=== PATIENT | male | born 1935 | race Caucasian/White ===

== ENCOUNTER 2023-07-14 17:15 | Emergency (ER) | payer MEDICARE, OTHER ==
[~2023-07-14] VITALS: Ht 170.2 cm; Wt 104.5 kg
[2023-07-14 17:40] LABS: BASOPHILS # (AUTO) 0.1 X10'3 (0-0.2); BASOPHILS % (AUTO) 1.1 % (0-1); EOSINOPHILS # (AUTO) 0.2 X10'3 (0-0.9); EOSINOPHILS % (AUTO) 2.8 % (0-6); HEMATOCRIT 40.4 % (42.0-52.0); HEMOGLOBIN 13.7 g/dl (14.0-17.9); LYMPHOCYTES # (AUTO) 1.6 X10'3 (1.1-4.8); LYMPHOCYTES % (AUTO) 21.6 % (21-51); MEAN CORPUSCULAR HEMOGLOBIN 31.7 PG (27.0-31.0); MEAN CORPUSCULAR VOLUME 93.3 FL (78-98); MEAN PLATELET VOLUME 8.1 FL (7.4-10.4); MONOCYTES # (AUTO) 0.7 X10'3 (0-0.9); MONOCYTES % (AUTO) 9.2 % (2-12); NEUTROPHILS # (AUTO) 4.9 X10'3 (1.8-7.7); NEUTROPHILS % (AUTO) 65.3 % (42-75); PLATELET COUNT 218 X10'3 (140-440); RED BLOOD COUNT 4.33 X10'6 (4.70-6.10); RED CELL DISTRIBUTION WIDTH 14.7 % (11.5-14.5); WHITE BLOOD COUNT 7.5 X10'3 (4.5-11.0)
[2023-07-14 17:55] LABS: ALANINE AMINOTRANSFERASE 21 U/L (12-78); ALBUMIN 4.1 G/DL (3.4-5.0); ALKALINE PHOSPHATASE 49 IU/L (46-116); ANION GAP 8 (8-16); ASPARTATE AMINO TRANSFERASE 20 U/L (10-37); BILIRUBIN,TOTAL 0.4 MG/DL (0.1-1.0); BLOOD UREA NITROGEN 20 MG/DL (7-18); BUN/CREATININE RATIO 18.7 (10.0-20.0); CALCIUM 9.9 MG/DL (8.5-10.1); CHLORIDE 98 MMOL/L (99-107); CREATININE 1.07 MG/DL (0.60-1.10); GLUCOSE 152 MG/DL (70-104); POTASSIUM 4.7 MMOL/L (3.5-5.1); SODIUM 132 MMOL/L (135-145); TOTAL CARBON DIOXIDE 25.8 MMOL/L (24-32); TOTAL PROTEIN 8.4 G/DL (6.4-8.2); eCRCL 45 ML/MIN; eGFR 65 ML/MIN
[2023-07-14 18:01] LABS: PRO BRAIN NATRIURETIC PEPTIDE 275 PG/ML (0-450)
[2023-07-14] MEDS ORDERED: oxyCODONE/APAP 10/325mg tablet PO ONE (21:10)
[2023-07-14] MEDS ORDERED: OXYC-145 PO (21:10)
[2023-07-14 21:42] VITALS: BP 170/72; PULSE 57; RESP 16; TEMP 98.4; O2SAT 97
== END 2023-07-14 21:46 | disposition home or self-care (01) ==
LOC: ER 17:16
DX: R07.9 Chest pain, unspecified (principal); R10.10 Upper abdominal pain, unspecified; E11.9 Type 2 diabetes mellitus without complications; Z79.899 Other long term (current) drug therapy
CPT/HCPCS: 36415; 71045; 80053; 83880; 84484; 85025; 93005; 99285

== ENCOUNTER 2023-07-19 12:55 | Emergency (ER) | payer MEDICARE, OTHER ==
[~2023-07-19] VITALS: Ht 170.2 cm; Wt 100.0 kg
[~2023-07-19 12:55] MED LIST: OXYC-145 PO
[2023-07-19 13:43] LABS: BASOPHILS % (AUTO) 0.6 % (0-1); EOSINOPHILS # (AUTO) 0.1 X10'3 (0-0.9); EOSINOPHILS % (AUTO) 2.3 % (0-6); HEMATOCRIT 38.9 % (42.0-52.0); HEMOGLOBIN 13.2 g/dl (14.0-17.9); LYMPHOCYTES % (AUTO) 16.7 % (21-51); MEAN CORPUSCULAR HEMOGLOBIN 31.5 PG (27.0-31.0); MEAN CORPUSCULAR HGB CONC 33.9 g/dL (33.0-36.5); MEAN CORPUSCULAR VOLUME 92.9 FL (78-98); MEAN PLATELET VOLUME 8.1 FL (7.4-10.4); MONOCYTES # (AUTO) 0.5 X10'3 (0-0.9); MONOCYTES % (AUTO) 7.9 % (2-12); NEUTROPHILS # (AUTO) 4.4 X10'3 (1.8-7.7); NEUTROPHILS % (AUTO) 72.5 % (42-75); PLATELET COUNT 209 X10'3 (140-440); RED BLOOD COUNT 4.18 X10'6 (4.70-6.10)
[2023-07-19 13:53] LABS: ALANINE AMINOTRANSFERASE 15 U/L (12-78); ALBUMIN 3.7 G/DL (3.4-5.0); ALKALINE PHOSPHATASE 40 IU/L (46-116); ANION GAP 7 (8-16); ASPARTATE AMINO TRANSFERASE 23 U/L (10-37); BILIRUBIN,TOTAL 0.6 MG/DL (0.1-1.0); BLOOD UREA NITROGEN 19 MG/DL (7-18); BUN/CREATININE RATIO 18.3 (10.0-20.0); CALCIUM 9.5 MG/DL (8.5-10.1); CHLORIDE 97 MMOL/L (99-107); CREATININE 1.04 MG/DL (0.60-1.10); GLUCOSE 151 MG/DL (70-104); POTASSIUM 4.5 MMOL/L (3.5-5.1); SODIUM 132 MMOL/L (135-145); TOTAL CARBON DIOXIDE 27.9 MMOL/L (24-32); TOTAL PROTEIN 7.4 G/DL (6.4-8.2); eCRCL 46 ML/MIN; eGFR 67 ML/MIN
[2023-07-19 14:02] LABS: PRO BRAIN NATRIURETIC PEPTIDE 192 PG/ML (0-450)
[2023-07-19] MEDS ORDERED: normal saline 500ml IV soln 500 ML IV ONE (14:35)
[2023-07-19] MEDS ORDERED: iohexol 350MG/ML 100ml bottle IV ONE (14:51)
[2023-07-19] MEDS ORDERED: losartan 50mg tablet PO ONE (16:15)
[2023-07-19] MEDS ORDERED: ketorolac trometh. 30mg/ml inj. IV ONE (16:15)
[2023-07-19 18:21] VITALS: BP 176/74; PULSE 58; RESP 16; TEMP 98.5; O2SAT 97
[2023-07-19] MEDS ORDERED: CYCL-394 PO (18:23)
[2023-07-19] MEDS ORDERED: METH4TAB3 PO (18:23)
== END 2023-07-19 18:37 | disposition home or self-care (01) ==
LOC: ER 12:57
DX: R07.89 Other chest pain (principal); R06.02 Shortness of breath; R09.1 Pleurisy; R07.81 Pleurodynia; E78.00 Pure hypercholesterolemia, unspecified; I10 Essential (primary) hypertension; E11.9 Type 2 diabetes mellitus without complications; Z79.899 Other long term (current) drug therapy
CPT/HCPCS: 36415; 71045; 71275; 74174; 80053; 83880; 84484; 85025; 93005; 96374; 99285; A6222; J1885; J3490; J7030; J7040; Q9967; 96361; A6258

== ENCOUNTER 2023-07-26 11:03 | Inpatient (IN) | payer MEDICARE, OTHER ==
--- NOTE | 2023-07-19 21:30 | NUR ---
Around this time I received report from Lisa LU and asked her to address the elevated b/p in the 200's prior to accepting patient on our floor. She informed me that she would talk to her charge nurse and get back to me.
[~2023-07-26] VITALS: Ht 170.2 cm; Wt 94.2 kg
[~2023-07-26 11:03] MED LIST changes: +CYCL-394 PO; +METH4TAB3 PO
[2023-07-26 11:43] LABS: RED CELL DISTRIBUTION WIDTH 14.9 % (11.5-14.5)
[2023-07-26 11:44] LABS: BASOPHILS # (AUTO) 0.1 X10'3 (0-0.2); EOSINOPHILS # (AUTO) 0.2 X10'3 (0-0.9); EOSINOPHILS % (AUTO) 1.6 % (0-6); HEMATOCRIT 44.2 % (42.0-52.0); HEMOGLOBIN 14.7 g/dl (14.0-17.9); LYMPHOCYTES # (AUTO) 1.3 X10'3 (1.1-4.8); MEAN CORPUSCULAR HEMOGLOBIN 31.2 PG (27.0-31.0); MEAN CORPUSCULAR HGB CONC 33.3 g/dL (33.0-36.5); MEAN CORPUSCULAR VOLUME 93.5 FL (78-98); MONOCYTES # (AUTO) 0.8 X10'3 (0-0.9); MONOCYTES % (AUTO) 8.5 % (2-12); NEUTROPHILS # (AUTO) 7.5 X10'3 (1.8-7.7); NEUTROPHILS % (AUTO) 75.9 % (42-75); PLATELET COUNT 254 X10'3 (140-440); RED BLOOD COUNT 4.73 X10'6 (4.70-6.10); WHITE BLOOD COUNT 9.9 X10'3 (4.5-11.0)
[2023-07-26 12:05] LABS: ALANINE AMINOTRANSFERASE 11 U/L (12-78); ALBUMIN/GLOBULIN RATIO 1.1 (1.1-1.5); ALKALINE PHOSPHATASE 45 IU/L (46-116); ANION GAP 8 (8-16); ASPARTATE AMINO TRANSFERASE 10 U/L (10-37); BILIRUBIN,TOTAL 0.7 MG/DL (0.1-1.0); BLOOD UREA NITROGEN 22 MG/DL (7-18); BUN/CREATININE RATIO 19.8 (10.0-20.0); CALCIUM 10.4 MG/DL (8.5-10.1); CHLORIDE 95 MMOL/L (99-107); CREATININE 1.11 MG/DL (0.60-1.10); GLUCOSE 125 MG/DL (70-104); POTASSIUM 4.3 MMOL/L (3.5-5.1); SODIUM 131 MMOL/L (135-145); TOTAL CARBON DIOXIDE 28.3 MMOL/L (24-32); TOTAL PROTEIN 7.8 G/DL (6.4-8.2); eCRCL 43 ML/MIN; eGFR 63 ML/MIN
[2023-07-26 12:14] LABS: PRO BRAIN NATRIURETIC PEPTIDE 320 PG/ML (0-450)
[2023-07-26] MEDS ORDERED: ceFOXitin 1 GM/D5W 50mL IVPB 50 ML IV ONE (13:55)
[2023-07-26] MEDS ORDERED: morphine 2 MG/ML inj. syringe IV ONE (13:55)
--- NOTE | 2023-07-26 14:26 | NUR ---
HOSPITALIST AT BEDSIDE WITH PATIENT AND FAMILY MEMBER.
[2023-07-26] MEDS ORDERED: potassium Cl 40MEQ/1/2NS 520ml 520 ML IV PRN (14:50)
[2023-07-26] MEDS ORDERED: morphine 2 MG/ML inj. syringe IV PRN (14:50)
[2023-07-26] MEDS ORDERED: magnesium 2GM in 50ml NS 50 ML IV PRN (14:50)
[2023-07-26] MEDS ORDERED: magnesium Cl slow-release 64mg tablet PO PRN (14:50)
[2023-07-26] MEDS ORDERED: magnesium 4gm in 100ml NS 100 ML IV PRN (14:50)
[2023-07-26] MEDS ORDERED: ondansetron/PF 4mg/2ml inj IV PRN (14:50)
[2023-07-26] MEDS ORDERED: potassium Cl 20 mEq SR tablet PO PRN ×2 (14:50)
[2023-07-26] MEDS: normal saline 1000ml 1,000 ML IV SCH (15:15)
[2023-07-26] MEDS ORDERED: CYCL10TA25 PO (18:08)
[2023-07-26] MEDS ORDERED: METF-1203 PO (18:08)
[2023-07-26] MEDS ORDERED: LEVO75TA7 PO (18:08)
[2023-07-26] MEDS ORDERED: LOSA50TA64 PO (18:08)
[2023-07-26] MEDS ORDERED: TIMO5DRO44 EACHEYE (18:08)
[2023-07-26] MEDS ORDERED: TOPI25TA49 PO (18:08)
[2023-07-26] MEDS ORDERED: DONE10TA44 PO (18:08)
[2023-07-26] MEDS ORDERED: TIMO1DRO12 EACHEYE (18:09)
--- NOTE | 2023-07-26 19:55 | NUR ---
INFORMED DR SHETH OF THE PTS PAIN LEVEL AND ELEVATED BP. ORDERS RECD FROM MD. PER MD ATTEMPT PAIN CONTROL FIRST, IF BP DOES NOT GO DOWN, GIVE THE HYDRALAZINE ORDER.
[2023-07-26] MEDS ORDERED: morphine 4 MG/ML inj SYRINge IV PRN (20:00)
[2023-07-26] MEDS ORDERED: hydrALAZINE 20mg/ml inj. IV PRN (20:00)
[2023-07-26] MEDS ORDERED: HYDROmorphone inj. 0.5 MG/0.5 ML DISP.SYRIN IV PRN (20:00)
[2023-07-26] MEDS: K and/or MAG REPLACEMENT MC SCH (20:07)
[2023-07-26] MEDS ORDERED: CHOL200012 PO (20:19)
[2023-07-26] MEDS ORDERED: ASPI-611 PO (20:19)
[2023-07-26] MEDS ORDERED: XAL0.005OS EACHEYE (20:19)
[2023-07-26] MEDS ORDERED: FISH400C3 PO (20:19)
[2023-07-26] MEDS ORDERED: MULT-1172 PO (20:19)
[2023-07-26] MEDS ORDERED: FENO48TA10 PO (20:19)
--- NOTE | 2023-07-26 20:27 | NUR ---
[facility] oliva in [facility] - 07/26/23 at 2028 by KEITH DAUGHTER IN LAW [phone]
--- NOTE | 2023-07-26 22:20 | NUR ---
Pt arrived from ER via w/c and was assisted to the bed with 2 assist.
[2023-07-26 22:30] VITALS: BP 166/77; PULSE 66; RESP 24; TEMP 97.7; O2SAT 97
[2023-07-27] VITALS (20 sets, daily range): BP systolic 123–206; BP diastolic 72–101; PULSE 65–96; RESP 13–18; TEMP 96.2–98.1; O2SAT 93–100
[2023-07-27] MEDS: morphine 2 MG/ML inj. syringe IV PRN ×3 (00:51→08:53)
--- NOTE | 2023-07-27 03:13 | NUR ---
APPEARS TO BE LEFT FOOT DROP Addendum: 07/27/23 at 0313 by Sakshi Dominguez RN Amended: Links added.
[2023-07-27 05:36] LABS: BASOPHILS # (AUTO) 0.1 X10'3 (0-0.2); BASOPHILS % (AUTO) 1.1 % (0-1); EOSINOPHILS # (AUTO) 0.2 X10'3 (0-0.9); EOSINOPHILS % (AUTO) 2.5 % (0-6); HEMATOCRIT 43.4 % (42.0-52.0); HEMOGLOBIN 14.3 g/dl (14.0-17.9); LYMPHOCYTES # (AUTO) 1.6 X10'3 (1.1-4.8); LYMPHOCYTES % (AUTO) 17.7 % (21-51); MEAN CORPUSCULAR VOLUME 93.8 FL (78-98); MEAN PLATELET VOLUME 8.7 FL (7.4-10.4); MONOCYTES % (AUTO) 11.4 % (2-12); NEUTROPHILS # (AUTO) 6.1 X10'3 (1.8-7.7); NEUTROPHILS % (AUTO) 67.3 % (42-75); PLATELET COUNT 247 X10'3 (140-440); RED BLOOD COUNT 4.62 X10'6 (4.70-6.10); RED CELL DISTRIBUTION WIDTH 15.1 % (11.5-14.5); WHITE BLOOD COUNT 9.1 X10'3 (4.5-11.0)
[2023-07-27 06:20] LABS: ALBUMIN 3.7 G/DL (3.4-5.0); ANION GAP 13 (8-16); BLOOD UREA NITROGEN 20 MG/DL (7-18); BUN/CREATININE RATIO 23.3 (10.0-20.0); CALCIUM 9.7 MG/DL (8.5-10.1); CHLORIDE 98 MMOL/L (99-107); CREATININE 0.86 MG/DL (0.60-1.10); GLUCOSE 141 MG/DL (70-104); MAGNESIUM 1.7 MG/DL (1.5-2.4); POTASSIUM 3.8 MMOL/L (3.5-5.1); SODIUM 132 MMOL/L (135-145); TOTAL CARBON DIOXIDE 21.2 MMOL/L (24-32); eCRCL 56 ML/MIN; eGFR 84 ML/MIN
--- NOTE | 2023-07-27 07:11 | NUR ---
Patient in room ORTHO 4022. I have received report from Kentrell and had the opportunity to ask questions and assume patient care.
[2023-07-27] MEDS: K and/or MAG REPLACEMENT MC SCH ×2 (08:34→20:00)
[2023-07-27] MEDS ORDERED: INDOCYANINE GREEN 25 MG/10 ML VIAL IV ONE (10:05)
--- NOTE | 2023-07-27 12:10 | NUR ---
Re: 4022A, Cristi, patient's SBP 168 then 177. Hydralazine ordered does not have parameters, what would you like? Coreen [id number]
[2023-07-27] MEDS ORDERED: ringers solution, lacted 1,000 ML IV SCH (14:00)
[2023-07-27] MEDS ORDERED: enalaprilat dihydrate 2.5mg/2ml vial IV PRN (14:00)
[2023-07-27] MEDS ORDERED: morphine 4 MG/ML inj SYRINge IV PRN (14:00)
[2023-07-27] MEDS ORDERED: proCHLORperazine 10 MG/2 ml inj IV PRN (14:00)
[2023-07-27] MEDS ORDERED: meperidine/PF 25mg/ml syringe IV PRN ×3 (14:00)
[2023-07-27] MEDS ORDERED: ondansetron/PF 4mg/2ml inj IV PRN (14:00)
[2023-07-27] MEDS ORDERED: morphine 2 MG/ML inj. syringe IV PRN (14:00)
[2023-07-27] MEDS ORDERED: labetalol 20mg/4ml (5mg/ml) syringe IV PRN (14:00)
[2023-07-27] MEDS ORDERED: neostigmine methylsulfate 1 MG/ML 10ml vial ONE (14:17)
[2023-07-27] MEDS ORDERED: sevoflurane 250ml liquid IH ONE (14:17)
[2023-07-27] MEDS ORDERED: desflurane 240ml liquid inh. IH ONE (14:17)
[2023-07-27] MEDS ORDERED: dexamethasone sod phosphate 10mg/ml inj ONE (14:17)
--- NOTE | 2023-07-27 14:19 | NUR ---
Problems reprioritized. Patient report given, questions answered & plan of care reviewed with Italia in recovery.
[2023-07-27] MEDS ORDERED: fentaNYL/PF 50MCG/1 ML 2ML syringe ONE (14:21)
[2023-07-27] MEDS ORDERED: midazolam 1 mg/ML 2ml injection ONE (14:21)
[2023-07-27] MEDS ORDERED: propofol inj 20 ML IV ONE (14:36)
[2023-07-27] MEDS ORDERED: rocuronium 10mg/ml inj IV ONE (14:36)
[2023-07-27] MEDS ORDERED: LIDOcaine 2% (20mg/ml) 5ml vial ONE (14:36)
[2023-07-27] MEDS ORDERED: ondansetron/PF 4mg/2ml inj ONE (14:36)
[2023-07-27] MEDS ORDERED: ceFAZolin 1000mg inj ONE ×2 (14:47)
[2023-07-27] MEDS ORDERED: LIDOcaine 1% 30ml preserv. free vial IJ ONE (15:09)
[2023-07-27] MEDS ORDERED: BUPIVAcaine/PF 2.5 mg/ml (0.25%) 30ml vial IJ ONE (15:09)
[2023-07-27] MEDS ORDERED: glycopyrrolate 0.2mg/ml inj ONE (15:26)
[2023-07-27] MEDS ORDERED: acetaminophen 1,000mg/100ml IV 100 ML IV ONE (15:27)
[2023-07-27] MEDS ORDERED: naloxone 0.4 mg/ml inj IV PRN (15:35)
[2023-07-27] MEDS ORDERED: HYDROcodone/acetaminophen 5mg/325mg tablet PO PRN (15:35)
[2023-07-27] MEDS ORDERED: HYDROcodone/acetaminophen 10/325mg tab PO PRN (15:35)
--- NOTE | 2023-07-27 15:40 | NUR ---
Received from OR via HOSPITAL NBED TO RR 4, accompanied by Anesthesiologist DR EASTON and report given by Anesthesiolgist. PT PRESENTS WITH 20G RIGHT AC, LR RUNNING AT 100MLS/HRM, SPO2 100% 6L MASK, 4 ABD DRESSING STRERI STRIPS AND BANDAIDS CDI, LEFT ARM WRAP FROM SKIN TEARS CDI, VSS. Addendum: 07/27/23 at 1550 by Sri Dumont RN, RN Amended: Links added.
--- NOTE | 2023-07-27 16:12 | NUR ---
Patient in room ORTHO 4022. I have received report from Sri in recovery and had the opportunity to ask questions and assume patient care. Addendum: 07/27/23 at 1640 by Coreen Mills RN patient arrived to the floor at 16:30. Doing well, tucked in, no complaints at this time.
--- NOTE | 2023-07-27 16:30 | NUR ---
Report called to receiving nurse HECTOR DAMON. Transferred via HOSPITAL BED BACK TO ROOM 4022A. BED IN LOW LOCKED POSITION WITH CALL LIGHT IN REACH, PT HOOKED UP TO BEDSIDE MONITOR. Belongings WERE LEF TIN PT ROOM, PT WAS GIVEN UPPER AND LOWER DENTURE IN RECOVEERY, PT PLACED IN MOUTH. PT FAMILY TO ROOM WITH PT. Special Issues communicated to receiving nurse. Addendum: 07/27/23 at 1636 by Sri Dumont RN, RN Amended: Links added.
[2023-07-27] MEDS: normal saline 1000ml 1,000 ML IV SCH (17:06)
--- NOTE | 2023-07-27 18:26 | NUR ---
Problems reprioritized. Patient report given, questions answered & plan of care reviewed with
--- NOTE | 2023-07-27 19:34 | NUR ---
Patient in room ORTHO 4022. I have received report from CASEY DAMON and had the opportunity to ask questions and assume patient care.
[2023-07-28 05:53] LABS: BASOPHILS # (AUTO) 0.1 X10'3 (0-0.2); BASOPHILS % (AUTO) 0.4 % (0-1); EOSINOPHILS % (AUTO) 0.1 % (0-6); HEMATOCRIT 39.3 % (42.0-52.0); HEMOGLOBIN 13.2 g/dl (14.0-17.9); LYMPHOCYTES % (AUTO) 7.5 % (21-51); MEAN CORPUSCULAR HEMOGLOBIN 31.2 PG (27.0-31.0); MEAN CORPUSCULAR HGB CONC 33.6 g/dL (33.0-36.5); MEAN CORPUSCULAR VOLUME 92.9 FL (78-98); MEAN PLATELET VOLUME 8.7 FL (7.4-10.4); MONOCYTES # (AUTO) 0.9 X10'3 (0-0.9); MONOCYTES % (AUTO) 6.8 % (2-12); NEUTROPHILS # (AUTO) 11.6 X10'3 (1.8-7.7); NEUTROPHILS % (AUTO) 85.2 % (42-75); PLATELET COUNT 234 X10'3 (140-440); RED BLOOD COUNT 4.23 X10'6 (4.70-6.10); RED CELL DISTRIBUTION WIDTH 14.8 % (11.5-14.5); WHITE BLOOD COUNT 13.6 X10'3 (4.5-11.0)
[2023-07-28 06:00] VITALS: BP 140/86; PULSE 97; RESP 16; TEMP 97.5; O2SAT 95
[2023-07-28 06:14] LABS: ALBUMIN 3.1 G/DL (3.4-5.0); ANION GAP 12 (8-16); BLOOD UREA NITROGEN 17 MG/DL (7-18); BUN/CREATININE RATIO 19.1 (10.0-20.0); CALCIUM 9.2 MG/DL (8.5-10.1); CHLORIDE 96 MMOL/L (99-107); CREATININE 0.89 MG/DL (0.60-1.10); GLUCOSE 171 MG/DL (70-104); MAGNESIUM 1.6 MG/DL (1.5-2.4); POTASSIUM 4.4 MMOL/L (3.5-5.1); SODIUM 130 MMOL/L (135-145); TOTAL CARBON DIOXIDE 22.5 MMOL/L (24-32); eCRCL 54 ML/MIN; eGFR 81 ML/MIN
--- NOTE | 2023-07-28 06:39 | NUR ---
Problems reprioritized. Patient report given, questions answered & plan of care reviewed with CASEY DAMON.
--- NOTE | 2023-07-28 06:51 | NUR ---
Patient in room ORTHO 4022. I have received report from Chelsey and had the opportunity to ask questions and assume patient care.
[2023-07-28] MEDS: K and/or MAG REPLACEMENT MC SCH ×2 (08:00→19:20)
[2023-07-28 08:35] VITALS: RESP 18; O2SAT 95
--- NOTE | 2023-07-28 08:44 | NUR ---
Re: Cristi in 2072A, pt is requesting to start his home meds. Coreen [id number]
--- NOTE | 2023-07-28 09:27 | NUR ---
Re: 4022A pt's HR has been in the 40s, several times per tele but returns to the 70s and 80s Coreen
[2023-07-28 10:00] VITALS: BP 151/77; PULSE 75; RESP 18; TEMP 97.9; O2SAT 93
[2023-07-28] MEDS ORDERED: magnesium hydroxide 30ml (MOM) UD suspension PO ONE (10:05)
[2023-07-28] MEDS: losartan 50mg tablet PO SCH (10:44)
[2023-07-28] MEDS: levoTHYROXINE 75mcg tablet PO SCH (10:44)
[2023-07-28] MEDS: fenofibrate 48mg tablet PO SCH (10:44)
--- NOTE | 2023-07-28 18:07 | NUR ---
Patient met hyperglycemic protocol but declines to have insulin. He wishes to resume his regular regime when he discharges home.
[2023-07-28 18:39] VITALS: BP 166/81; PULSE 85; RESP 18; TEMP 97.4; O2SAT 92
[2023-07-28] MEDS ORDERED: FISH OIL PO SCH (20:00)
[2023-07-28] MEDS ORDERED: BORAGE PO SCH (20:00)
[2023-07-28] MEDS ORDERED: FLAX PO SCH (20:00)
[2023-07-28] MEDS ORDERED: [UNRECOGNIZED DRUG - OTHER] PO SCH (20:00)
[2023-07-28 20:03] VITALS: RESP 16; O2SAT 92
[2023-07-28] MEDS: timolol 0.5% ophthalmic solution 5ml bottle EACHEYE SCH (20:03)
[2023-07-28] MEDS ORDERED: topiramate 25mg tablet PO SCH (21:00)
[2023-07-28] MEDS ORDERED: cyclobenzaprine 10mg tablet PO SCH (21:00)
[2023-07-28] MEDS ORDERED: latanoprost 0.005% 2.5ml ophthalmic drops EACHEYE SCH (21:00)
[2023-07-28 22:00] VITALS: BP 161/76; PULSE 75; RESP 18; TEMP 97.6; O2SAT 93
[2023-07-29 06:00] VITALS: BP 161/76; PULSE 75; RESP 18; TEMP 97.6; O2SAT 93
--- NOTE | 2023-07-29 06:27 | NUR ---
Problems reprioritized. Patient report given, questions answered & plan of care reviewed with Karli.
[2023-07-29 07:31] LABS: BASOPHILS # (AUTO) 0.1 X10'3 (0-0.2); BASOPHILS % (AUTO) 0.9 % (0-1); EOSINOPHILS # (AUTO) 0.1 X10'3 (0-0.9); EOSINOPHILS % (AUTO) 1.3 % (0-6); HEMATOCRIT 38.9 % (42.0-52.0); HEMOGLOBIN 13.1 g/dl (14.0-17.9); LYMPHOCYTES # (AUTO) 1.4 X10'3 (1.1-4.8); LYMPHOCYTES % (AUTO) 12.8 % (21-51); MEAN CORPUSCULAR HEMOGLOBIN 31.4 PG (27.0-31.0); MEAN CORPUSCULAR HGB CONC 33.7 g/dL (33.0-36.5); MEAN CORPUSCULAR VOLUME 93.3 FL (78-98); MEAN PLATELET VOLUME 8.4 FL (7.4-10.4); MONOCYTES # (AUTO) 1.4 X10'3 (0-0.9); MONOCYTES % (AUTO) 13.1 % (2-12); NEUTROPHILS # (AUTO) 7.7 X10'3 (1.8-7.7); NEUTROPHILS % (AUTO) 71.9 % (42-75); PLATELET COUNT 212 X10'3 (140-440); RED BLOOD COUNT 4.17 X10'6 (4.70-6.10); RED CELL DISTRIBUTION WIDTH 14.6 % (11.5-14.5); WHITE BLOOD COUNT 10.7 X10'3 (4.5-11.0)
[2023-07-29] MEDS ORDERED: donepezil 5mg tablet PO SCH (08:00)
[2023-07-29] MEDS ORDERED: [UNRECOGNIZED DRUG - OTHER] PO SCH (08:00)
[2023-07-29] MEDS ORDERED: aspirin 81mg, enteric-coated 1 TAB TABLET.DR PO SCH (08:00)
[2023-07-29] MEDS ORDERED: MULTIVIT MIN PO SCH (08:00)
[2023-07-29] MEDS ORDERED: LYCOPEN PO SCH (08:00)
[2023-07-29] MEDS ORDERED: LUTEIN PO SCH (08:00)
[2023-07-29] MEDS ORDERED: cholecalciferol (vitamin D3) 1,000 unit (25mcg) tablet PO SCH (08:00)
[2023-07-29] MEDS: K and/or MAG REPLACEMENT MC SCH (08:00)
[2023-07-29 08:06] LABS: ALBUMIN 3.1 G/DL (3.4-5.0); ANION GAP 9 (8-16); BLOOD UREA NITROGEN 14 MG/DL (7-18); BUN/CREATININE RATIO 16.7 (10.0-20.0); CALCIUM 8.9 MG/DL (8.5-10.1); CHLORIDE 96 MMOL/L (99-107); CREATININE 0.84 MG/DL (0.60-1.10); GLUCOSE 150 MG/DL (70-104); MAGNESIUM 1.7 MG/DL (1.5-2.4); POTASSIUM 4.2 MMOL/L (3.5-5.1); SODIUM 129 MMOL/L (135-145); eCRCL 57 ML/MIN; eGFR 86 ML/MIN
[2023-07-29 08:55] VITALS: RESP 20
[2023-07-29] MEDS: timolol 0.5% ophthalmic solution 5ml bottle EACHEYE SCH (09:16)
[2023-07-29] MEDS: fenofibrate 48mg tablet PO SCH (09:17)
[2023-07-29] MEDS: losartan 50mg tablet PO SCH (09:22)
[2023-07-29] MEDS: levoTHYROXINE 75mcg tablet PO SCH (09:23)
[2023-07-29 10:00] VITALS: BP 155/71; PULSE 58; RESP 16; TEMP 98.2; O2SAT 95
--- NOTE | 2023-07-29 12:30 | NUR ---
patient refusing insulin to cover elevated blood sugar. He will take his routine med at home
== END 2023-07-29 15:00 | disposition home or self-care (01) | DRG 418 ==
LOC: ER 11:03 → ED HOLD 14:52 → ORTHO 4S 22:26
PROVIDERS: ADMIT Internal Medicine; ATTEND Internal Medicine
PROC: BF532Z0 Other Imaging of Gallbladder and Bile Ducts using Fluorescing Agent, Intraoperative (ICD-10-PCS; 2023-07-27)
PROC: 8E0W4CZ Robotic Assisted Procedure of Trunk Region, Percutaneous Endoscopic Approach (ICD-10-PCS; 2023-07-27)
PROC: 0FT44ZZ Resection of Gallbladder, Percutaneous Endoscopic Approach (ICD-10-PCS; principal; 2023-07-27 14:17)
DX: K80.00 Calculus of gallbladder with acute cholecystitis without obstruction (principal); E87.1 Hypo-osmolality and hyponatremia; I10 Essential (primary) hypertension; E78.00 Pure hypercholesterolemia, unspecified; E11.9 Type 2 diabetes mellitus without complications; E66.9 Obesity, unspecified; E86.0 Dehydration; R07.9 Chest pain, unspecified; Z79.899 Other long term (current) drug therapy; Z79.82 Long term (current) use of aspirin; Z68.32 Body mass index [BMI] 32.0-32.9, adult
CPT/HCPCS: 36415; 71045; 76700; 80048; 80053; 82948; 83605; 83735; 83880; 84145; 84484; 85025; 87040; 87081; 88304; 93005; 99285; A4215; A4615; A4618; A6212; A6222; A6446; A6449; A7000; C1758; G0378; J0131; J0360; J0690; J0694; J1100; J1170; J2175; J2250; J2270; J2405; J2704; J2710; J3010; J3490; J7030; J7120